=== PATIENT | female | born 1940 | race African-American/Black ===

== ENCOUNTER 2021-12-28 12:40 | Emergency (ER) | payer OTHER ==
[~2021-12-28] VITALS: Ht 167.6 cm; Wt 68.0 kg
[2021-12-28] MEDS ORDERED: NAMENDA10 MG PO (13:10)
[2021-12-28] MEDS ORDERED: TENORMIN50 M1 PO (13:10)
[2021-12-28] MEDS ORDERED: ARICEPT10 MG (13:10)
[2021-12-28] MEDS ORDERED: MAXIMUM D3325 MCG PO (13:11)
[2021-12-28] MEDS ORDERED: SYNTHROID112 MCG PO (13:11)
[2021-12-28] MEDS ORDERED: TELMISARTAN-HC1 EACH PO (13:11)
[2021-12-28] MEDS ORDERED: RISPERDAL2 MG PO (13:12)
[2021-12-28] MEDS ORDERED: PEPCID AC20 MG PO (13:12)
[2021-12-28] MEDS ORDERED: SIMVASTATIN5 MG PO (13:12)
[2021-12-28] MEDS ORDERED: CITALOPRAM20 MG/10 M PO ×2 (13:13→13:14)
[2021-12-28] MEDS ORDERED: JANUVIA100 MG PO (13:14)
[2021-12-28] MEDS ORDERED: AMLODIPINE-OLM1 EAC2 PO (13:15)
== END 2021-12-28 18:05 | disposition home or self-care (01) ==
LOC: ER 12:40
DX: E11.621 Type 2 diabetes mellitus with foot ulcer (principal); Z79.84 Long term (current) use of oral hypoglycemic drugs; E03.9 Hypothyroidism, unspecified; I10 Essential (primary) hypertension; G30.9 Alzheimer's disease, unspecified; F02.80 Dementia in other diseases classified elsewhere, unspecified severity, without behavioral disturbance, psychotic disturbance, mood disturbance, and anxiety; L89.622 Pressure ulcer of left heel, stage 2; L89.612 Pressure ulcer of right heel, stage 2

== ENCOUNTER 2022-01-16 10:37 | Inpatient (IN) | payer OTHER ==
[~2022-01-16] VITALS: Ht 167.6 cm; Wt 68.0 kg
[~2022-01-16 10:37] MED LIST: AMLODIPINE-OLM1 EAC2 PO; ARICEPT10 MG; CITALOPRAM20 MG/10 M PO; JANUVIA100 MG PO; MAXIMUM D3325 MCG PO; NAMENDA10 MG PO; PEPCID AC20 MG PO; RISPERDAL2 MG PO; SIMVASTATIN5 MG PO; SYNTHROID112 MCG PO; TELMISARTAN-HC1 EACH PO; TENORMIN50 M1 PO
[2022-01-16] MEDS ORDERED: AMLODIPINE BESYL5 MG PO (11:14)
[2022-01-17] MEDS ORDERED: TRAZODONE HCL50 MG (08:21)
[2022-01-17] MEDS ORDERED: QUETIAPINE FUMA25 MG (08:21)
[2022-01-17] MEDS ORDERED: JANUVIA100 MG (08:21)
[2022-01-17] MEDS ORDERED: MELATONIN3 MG (08:22)
[2022-01-17] MEDS ORDERED: TELMISARTAN80 MG (08:22)
[2022-01-19] MEDS ORDERED: AMLODIPINE BESYL5 MG PO (16:51)
[2022-01-19] MEDS ORDERED: ATENOLOL25 MG PO (16:51)
[2022-01-19] MEDS ORDERED: RESTORIL15 MG PO (16:51)
[2022-01-19] MEDS ORDERED: ARICEPT10 MG PO (16:51)
[2022-01-19] MEDS ORDERED: VITAMIN D3125 MC2 PO (16:51)
[2022-01-19] MEDS ORDERED: CEPHALEXIN750 MG PO (16:51)
[2022-01-19] MEDS ORDERED: LEVOTHYROXINE112 MCG PO (16:51)
[2022-01-19] MEDS ORDERED: INTESTINEX680 M2 PO (16:51)
[2022-01-19] MEDS ORDERED: NAMENDA10 MG PO (16:51)
== END 2022-01-19 19:36 | disposition home or self-care (01) | DRG 593 ==
LOC: ER 10:37 → MEDJ 19:41 → SEC-K 19:41 → MEDJ 20:14
PROVIDERS: ADMIT Internal Medicine; ATTEND Internal Medicine
PROC: 0HDNXZZ Extraction of Left Foot Skin, External Approach (ICD-10-PCS; principal; 2022-01-16)
PROC: 0H9MXZZ Drainage of Right Foot Skin, External Approach (ICD-10-PCS; 2022-01-18)
DX: L89.623 Pressure ulcer of left heel, stage 3 (principal); N18.4 Chronic kidney disease, stage 4 (severe); L89.619 Pressure ulcer of right heel, unspecified stage; E11.621 Type 2 diabetes mellitus with foot ulcer; L08.9 Local infection of the skin and subcutaneous tissue, unspecified; E86.0 Dehydration; B95.61 Methicillin susceptible Staphylococcus aureus infection as the cause of diseases classified elsewhere; G30.9 Alzheimer's disease, unspecified; F02.80 Dementia in other diseases classified elsewhere, unspecified severity, without behavioral disturbance, psychotic disturbance, mood disturbance, and anxiety; I12.9 Hypertensive chronic kidney disease with stage 1 through stage 4 chronic kidney disease, or unspecified chronic kidney disease; E11.22 Type 2 diabetes mellitus with diabetic chronic kidney disease; Z79.4 Long term (current) use of insulin